=== PATIENT | female | born 1985 | race Caucasian/White ===

== ENCOUNTER 2020-01-31 14:46 | Emergency (ER) | payer OTHER, SELFPAY ==
--- NOTE | ~2020-01-31 | XR_ITS ---
EXAMINATION: XR chest 2V DATE: 01/31/2020 15:41 INDICATION: Left chest soreness. Left arm tingling. TECHNIQUE: Frontal and lateral views of the chest were obtained. COMPARISON: Chest 2 views 06/12/2019 FINDINGS: The chest demonstrates clear lungs without pneumonia, pleural effusion, or pneumothorax. Th e heart size is normal. IMPRESSION: 1. No acute cardiopulmonary disease. Reviewed, dictated and finalized at location A.
[2020-01-31 14:51] VITALS: BP 119/52; PULSE 77; RESP 18; TEMP 36.9; O2SAT 100
--- NOTE | 2020-01-31 15:17 | ECG_ITS ---
Measurements Intervals [place] Rate: 68 P: 23 WA: 143 QRS: 47 QRSD: 81 T: 8 QT: 372 QTc: 398 Interpretive Statements SINUS RHYTHM BORDERLINE T WAVE ABNORMALITY- INFERIOR LEADS BASELINE ARTIFACT- I, III, AVR, AVL, AVF BORDERLINE ECG Electronically Signed On 01-31-2020 15:29:51 CDT by Boo Mercado D.O.
[2020-01-31 15:18] VITALS: PULSE 78
[2020-01-31 15:51] LABS: Basophils Percent Auto 0.6 % (0.2-1.2); Eosinophils Absolute Auto 0.2 K/mm3 (0-0.3); Eosinophils Percent Auto 2.5 % (0-4.4); Hematocrit 36.2 % (37.0-47.0); Hemoglobin 12.4 g/dL (12.0-15.0); Immature Granulocyte Absolute 0.03 K/mm3 (0.00-0.031); Immature Granulocyte Percent A 0.4 % (0-0.5); Lymphocytes Percent Auto 22.2 % (18.3-44.2); Mean Corpuscular HGB Conc 34.3 g/dl (32-36); Mean Corpuscular Hemoglobin 30.1 pg (26-34); Mean Corpuscular Volume 87.9 fl (80-100); Mean Platelet Volume 9.9 fl (7.4-10.4); Monocytes Absolute Auto 0.4 K/mm3 (0.1-0.6); Monocytes Percent Auto 5.7 % (2.6-8.5); Neutrophils Percent Auto 68.6 % (45.5-73.1); Platelet Count Result 281 k/mm3 (150-375); Red Blood Count 4.12 M/mm3 (4.2-5.4); Red Cell Distribution Width 11.8 % (11.5-14.5); White Blood Count 7.2 K/mm3 (4.5-10.0)
[2020-01-31] MEDS: KETOROLAC 30 MG/ML VIAL (*BKC) (15:58)
[2020-01-31 16:00] LABS: INR 0.9; Prothrombin Time 12.1 Seconds (11.1-14.7)
--- NOTE | 2020-01-31 16:00 | ED.GENADULT ---
HPI - General Adult General Chief complaint: Unspecified <Asa Chamberlain PA-C - Last Filed: 01/31/20 16:35> Stated complaint: Left Arm Tingling, Sent from [facility] <Asa Chamberlain PA-C - Last Filed: 01/31/20 16:35> Time Seen by Provider: 01/31/20 14:51 <Asa Chamberlain PA-C - Last Filed: 01/31/20 16:35> Source: patient <Asa Chamberlain PA-C - Last Filed: 01/31/20 16:35> Mode of arrival: ambulatory <Asa Chamberlain PA-C - Last Filed: 01/31/20 16:35> Limitations: no limitations <Asa Chamberlain PA-C - Last Filed: 01/31/20 16:35> History of Present Illness HPI narrative: Patient is a 34-year-old female who presents to emergency department for evaluation of pain to the left upper extremity noting aching pain worse with activity and movement patient woke with the pain and has tingling down to the level of the hand patient denies similar occurrence in the past became anxious and had a panic attack that was referred by urgent care to emergency department for evaluation. Patient denies recent illness injury or trauma and has not taken anything for her symptoms <Asa Chamberlain PA-C - Last Filed: 01/31/20 16:35> Related Data Allergies/adverse reactions: Allergies Allergy/AdvReac Type Severity Reaction Status Date / Time No Known Allergies Allergy Unknown Unverified 06/12/19 19:57 <Asa Chamberlain PA-C - Last Filed: 01/31/20 16:35> Review of Systems Review of Systems: All systems reviewed & are unremarkable except as noted in HPI and below <Asa Chamberlain PA-C - Last Filed: 01/31/20 16:35> [facility] Past Medical History Medical History: Medical History (Updated 01/31/20 @ 16:05 by Asa Chamberlain PA-C) Anxiety <Asa Chamberlain PA-C - Last Filed: 01/31/20 16:35> Social History Social History: Social History Gender identity (if verbalized by the patient): Female <Asa Chamberlain PA-C - Last Filed: 01/31/20 16:35> Exam Narrative: Exam Narrative: GENERAL: Well-appearing, well-nourished, and in no acute distress. HEAD: Normocephalic, atraumatic. EYES: PERRLA and EOMI. ENT: Nares clear, no rhinorrhea or epistaxis. Mucous membranes moist. Oropharynx without tonsillar hypertrophy exudate or other lesions. NECK: Supple. No adenopathy or masses. CHEST: Clear to auscultation. No respiratory distress. No wheezes rales or rhonchi HEART: Regular rate and rhythm. No murmur heard. Normal peripheral pulses.. EXTREMITIES: Normal range of motion. No edema. Left trapezius and paraspinal cervical musculature tenderness SKIN: Warm, dry, no rash. NEURO: No focal deficits. Alert and oriented x3. Cranial nerves II through XII grossly intact. Neurovascularly intact. Capillary refill less than 2 seconds PSYCH: Normal mood and affect. <BARRERA Abdi Last Filed: 01/31/20 16:35> Course Course Emergency Course: Patient in the room in no distress aware of case findings treatment plan and diagnosis agreeing to follow-up as directed or to return if symptoms worsen or concerns <BARRERA Abdi Last Filed: 01/31/20 16:35> Vital Signs Vital signs: Vital Signs Temperature 98.4 F 01/31/20 14:51 Pulse Rate 77 01/31/20 14:51 Respiratory Rate 18 01/31/20 14:51 Blood Pressure 119/52 L 01/31/20 14:51 Pulse Oximetry 100 01/31/20 14:51 Temperature 98.4 F 01/31/20 14:51 Pulse Rate 81 01/31/20 16:45 Respiratory Rate 16 01/31/20 16:45 Blood Pressure 119/59 L 01/31/20 16:45 Pulse Oximetry 100 01/31/20 16:45 <BARERRA Abdi Last Filed: 01/31/20 16:35> Vital Signs Temperature 98.4 F 01/31/20 14:51 Pulse Rate 77 01/31/20 14:51 Respiratory Rate 18 01/31/20 14:51 Blood Pressure 119/52 L 01/31/20 14:51 Pulse Oximetry 100 01/31/20 14:51 Temperature 98.4 F 01/31/20 14:51 Pulse Rate 81 01/31/20 16:45 R
[2020-01-31 16:01] LABS: Partial Thromboplastin Time 28.3 SECONDS (22.3-36.8)
[2020-01-31 16:03] LABS: Blood Urea Nitrogen 7 mg/dL (7-17); Calcium 9.2 mg/dL (8.4-10.2); Carbon Dioxide 27 mmol/L (22-30); Chloride 103 mmol/L (98-107); Estimated CRCL calculation 139 ml/min; Estimated Glomerular Filt Rate > 60; Glucose 88 mg/dL (65-105); Potassium 3.8 mmol/L (3.4-5.0); Sodium 136 mmol/L (137-145)
[2020-01-31 16:15] LABS: Troponin I < 0.012 ng/mL (0.000-0.034)
[2020-01-31 16:37] VITALS: BP 142/84; PULSE 78; RESP 16; O2SAT 97
[2020-01-31 16:45] VITALS: BP 119/59; PULSE 81; RESP 16; O2SAT 100
== END 2020-01-31 16:46 | disposition home or self-care (01) ==
PROVIDERS: Emergency Provider General Practice; PCP Family Medicine Adolescent Medicine
DX: M79.602 Pain in left arm (principal); R94.31 Abnormal electrocardiogram [ECG] [EKG]
CPT/HCPCS: 36415; 71046; 80048; 84484; 85025; 85610; 85730; 93005; 96372; 99284; J1885

== ENCOUNTER 2020-04-23 18:55 | Emergency (ER) | payer OTHER, SELFPAY ==
--- NOTE | ~2020-04-23 | XR_ITS ---
XR wrist RT min 3V DATE: 04/23/2020 19:22 INDICATION: Right wrist pain for 4 days. Distal radial pain. TECHNIQUE: 4 views COMPARISON: None FINDINGS: No fracture or dislocation, periosteal reaction or bone destruction. Joint spaces are prese rved. No erosive changes or chondrocalcinosis. IMPRESSION: Negative Reviewed, dictated and finalized at location A. IMPRESSION: Negative
[2020-04-23 19:05] VITALS: BP 114/61; PULSE 80; RESP 20; TEMP 37.2; O2SAT 99
--- NOTE | 2020-04-23 19:12 | ED.UPPEXIN ---
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 Patient has been taking [id number] Tylenol with little relief. Patient ports that the pain is much worse with range of motion of her right wrist. Patient denies erythema, bruising, numbness or tingling. Patient denies previous injury to her wrist MD complaint: injury to: right and wrist Onset (ago): day(s) (4) Other Extremity Injury: Right: wrist Other injuries: none Place: work Relieving factors: none Exacerbating factors: movement of extremity Associated symptoms: denies other symptoms Related Data Home Medications Medication Instructions Recorded Confirmed alprazolam 0.5 mg PO BID PRN 04/23/20 04/23/20 buspirone 10 mg PO BID 04/23/20 04/23/20 cetirizine [Zyrtec] 10 mg PO DAILY 04/23/20 04/23/20 ergocalciferol (vitamin D2) 1,250 mcg PO WEEKLY 04/23/20 04/23/20 [Vitamin D2] vit no.[id number] 1 tablet PO DAILY 04/23/20 04/23/20 [ Vitamin] Allergies Allergy/AdvReac Type Severity Reaction Status Date / Time No Known Allergies Allergy Unknown Verified 04/23/20 19:09 Review of Systems Review of Systems: All systems reviewed & are unremarkable except as noted in HPI and below Constitutional: Constitutional: Denies chills, Denies fatigue, Denies fever(s) and Denies weakness ENT: Denies dysphagia, Denies dizziness, Denies epistaxis and Denies sore throat Cardiovascular: Cardiovascular: Denies chest pain, Denies rapid heart rate, Denies radiating jaw, neck or arm pain and Denies slow heart rate Respiratory: Respiratory: Denies cough, Denies dyspnea and Denies wheezing Gastrointestinal: Gastrointestinal: Denies abdominal pain, Denies diarrhea, Denies nausea and Denies vomiting Musculoskeletal: Musculoskeletal: Reports arthralgias Comments: right wrist pain Integumentary/Breasts: Skin/Breast: Denies rash Neurologic: Denies headache(s), Denies focal weakness, Denies numbness and Denies weakness PMFSH Past Medical History Medical History (Updated 04/23/20 @ 19:32 by Candi Abdi APRN) Anxiety Anxiety Cholecystectomy planned Sleep apnea Social History Social History (Updated 04/23/20 @ 19:16 by Candi Abdi APRN) Smoking status: Never smoker Gender identity (if verbalized by the patient): Female Exam Const: General: healthy appearing, no acute distress and alert Orientation/consciousness: patient oriented x3 Neck: Neck: normal visual inspection Resp: Effort & Inspection: normal respiratory effort Auscultation: clear to auscultation bilaterally Cardio: Rate: regular rate, bradycardic and tachycardic Rhythm: regular rhythm Skin: General skin exam: normal color Rashes: no rashes Neuro: General: patient oriented x3 and moves all extremities Extrem: General: no clubbing, cyanosis or edema and no pedal edema Other: Pain noted to radial aspect of right wrist upon range of motion. There is no swelling, erythema or bruising noted. Pulses are within normal limits Psych: Appearance: grossly normal Mental Status: mental status grossly normal Affect: normal affect Attitude: cooperative Thought content: Yes Normal thought content present Course Vital Signs Vital signs: Vital Signs Temperature 37.2 C 04/23/20 19:05 Pulse Rate 80 04/23/20 19:05 Respiratory Rate 04/23/20 19:05 Blood Pressure 114/61 04/23/20 19:05 Pulse Oximetry 99 04/23/20 19:05 Temperature 37.2 C 04/23/20 19:05 Pulse Rate 80 04/23/20 19:05 Respiratory Rate 04/23/20 19:05 Blood Pressure 114/61 04/23/20 19:05 Pulse Oximetry 99 04/23/20 19:05 MDM - Extremity Injur
== END 2020-04-23 19:43 | disposition home or self-care (01) ==
PROVIDERS: Emergency Provider Nurse Practitioner Family; PCP Family Medicine Adolescent Medicine
DX: S63.591A Other specified sprain of right wrist, initial encounter (principal); X50.3XXA Overexertion from repetitive movements, initial encounter; Y99.0 Civilian activity done for income or pay; F41.9 Anxiety disorder, unspecified; G47.30 Sleep apnea, unspecified
CPT/HCPCS: 73110; 99213; G0463

== ENCOUNTER 2020-07-13 16:00 | Outpatient (NON) | payer OTHER, SELFPAY ==
[2020-07-17 13:43] LABS: SARS-CoV-2 RNA PCR Negative
== END 2020-07-13 16:01 ==
LOC: ANHCOVIDDT 16:02
PROVIDERS: PCP Family Medicine Adolescent Medicine; Visit Provider Family Medicine Adolescent Medicine
DX: R51.9 Headache, unspecified (principal); R50.9 Fever, unspecified; Z20.828 Contact with and (suspected) exposure to other viral communicable diseases
CPT/HCPCS: 87635; C9803; U0003